=== PATIENT | male | born 1960 | race Caucasian/White ===

== ENCOUNTER 2024-12-06 19:00 | Emergency (ER) | payer OTHER, SELFPAY ==
--- OUTSIDE RECORDS SUMMARY | 2023-10-10 04:00 | XMS_ITS ---
Author Organization [facility] Address [address] [facility] [address] [place] [address] Care Team Providers Care Residential Case Manager Name Role Phone Migration, Provider Unavailable [phone] REASON FOR VISIT EMR-Tone Encounters Encounter Location Date Provider Diagnosis [facility] [address] [place] [address] 10/10/2023 Provider Migration Plan Of Treatment Medication Medication Name Sig Start Date Stop Date Notes traMADol HCl 50 MG 1 Oral Q6; Duration: 30 04/01/2017 04/30/2017 ,PRN Reason:for pain Lidocaine HCl 10 mg/mL (1 %) 20 Injection Titrated; Duration: 0 06/12/2015 06/12/2015 Nucynta 100 MG 1 Oral BID; Duration : 30 10/06/2015 11/04/2015 ,discontinuereaso n:Refilled Propofol 10 mg/mL 60 Intravenous Titrated; Duration: 0 06/12/2015 06/12/2015 Midazolam HCl 2 mg/2 mL (1 mg/mL) 2 Injection Now; Duration: 0 06/12/2015 06/12/2015 ceFAZolin Sodium 1 GM 1 Injection Titrat ed; Duration: 0 03/03/2017 03/03/2017 Nucynta 50 MG 1 Oral Q12H; Duratio n: 30 12/18/2016 01/16/2017 Sodium Chloride 0.9 % 250 Injection Titrated; Duration: 0 06/12/2015 06/12/2015 Methocarbamol 500 MG 1 Oral BID; Duratio n: 30 03/08/2016 04/02/2016 ,discontinuereaso n:Discontinued,WI N Reason:for spasms oxyCODONE HCl 10 MG Oral BID; Duration: 30 06/13/2015 04/03/2015 Progress Notes * Austen HARTMANDOB:[birth year] (64 yo M)Acc No.[id number]:10/10/2023 Patient: Austen PERRY :1960 A ge:63 Y S ex:Male Phone: Address:[address] [place] [address] [place], [address] * Refills Stop traMADol HCl Tablet, 50 MG, Oral, 120, 1, Q6, 30 Stop Nucynta Tablet, 100 MG, Oral, 60, 1, BID, 30 Stop Nucynta Tablet, 50 MG, Oral, 60, 1, Q12H, 30 Stop traMADol HCl Tablet, 50 MG, Oral, 60, 1, Q6, 15 Stop Nucynta Tablet, 50 MG, Oral, 30, 1, Q12H, 15 Stop traMADol HCl Tablet, 50 MG, Oral, 28, Q6, 7 Stop Nucynta Tablet, 50 MG, Oral, 60, 1, Q12H, 30 Stop Nucynta Tablet, 50 MG, Oral, 60, 1, BID, 30 Stop traMADol HCl Tablet, 50 MG, Oral, 120, 1, Q6, 30 Stop Nucynta Tablet, 50 MG, Oral, 60, 1, BID, 30 Stop Methocarbamol Tablet, 500 MG, Oral, 60, 1, BID, 30 Stop oxyCODONE HCl Tablet, 10 MG, Oral, 60, BID, 30 Stop traMADol HCl Tablet, 50 MG, Oral, 120, 1, Q6, 30 Stop traMADol HCl Tablet, 50 MG, Oral, 120, 1, Q6, 30 Stop traMADol HCl Tablet, 50 MG, Oral, 120, 1, Q6, 30 Stop traMADol HCl Tablet, 50 MG, Oral, 120, 1, Q6, 30 Stop traMADol HCl Tablet, 50 MG, Oral, 120, 1, Q6, 30 Stop Nucynta Tablet, 100 MG, Oral, 60, BID, 30 Stop Nucynta Tablet, 100 MG, Oral, 60, BID, 30 Stop Nucynta Tablet, 50 MG, Oral, 60, 1, Q12H, 30 Stop traMADol HCl Tablet, 50 MG, Oral, 120, 1, Q6, 30 Stop Nucynta Tablet, 50 MG, Oral, 60, 1, BID, 30 Stop Nucynta Tablet, 100 MG, Oral, 60, 1, BID, 30 Stop Methocarbamol Tablet, 500 MG, Oral, 60, 1, BID, 30 Stop traMADol HCl Tablet, 50 MG, Oral, 120, 1, Q6, 30 Stop traMADol HCl Tablet, 50 MG, Oral, 120, 1, Q6, 30 Stop traMADol HCl Tablet, 50 MG, Oral, 120, 1, Q6, 30 Stop traMADol HCl Tablet, 50 MG, Oral, 120, 1, Q6, 30 Stop Nucynta Tablet, 50 MG, Oral, 60, 1, Q12H, 30 Stop Nucynta Tablet, 50 MG, Oral, 60, 1, BID, 30 Stop Nucynta Tablet, 50 MG, Oral, 60, 1, BID, 30 Stop Nucynta Tablet, 50 MG, Oral, 60, 1, Q12H, 30 Stop Methocarbamol Tablet, 500 MG, Oral, 60, 1, BID, 30 Stop Methocarbamol Tablet, 500 MG, Oral, 60, 1, BID, 30 Stop Methocarbamol Tablet, 500 MG, Oral, 60, 1, BID, 30 Stop oxyCODONE HCl Tablet, 10 MG, Oral, 60, BID, 30 Stop traMADol HCl Tablet, 50 MG, Oral, 120, 1, Q6, 30 Stop traMADol HCl Tablet, 50 MG, Oral, 120, 1, Q6, 30 Stop traMADol HCl Tablet, 50 MG, Oral, 120, 1, Q6, 30 Stop traMADol HCl Tablet, 50 MG, Oral, 120, 1, Q6, 30 Stop Nucynta Tablet, 100 MG, Oral, 60, BID, 30 Stop Nucynta Tablet, 100 MG, Oral, 60, BID, 30 Stop Propofol Emulsion, 10 mg/mL, Intravenous, 60, Titrated, 0 Stop Sodium Chloride Solution, 0.9 %, Injection, 250, Titrated, 0 Stop Lidocaine HCl Solution, 10 mg/mL (1 %), Injection, 20, Titrated, 0 Stop ceFAZolin Sodium Solution Reconstituted, 1 GM, Injection, 1, Titrated, 0 Stop Midazolam HCl Solution, 2 mg/2 mL (1 mg/mL), Injection, 2, Now, 0 Subjective: * Chief Complaints: * E MR-Tone * Medical History: * Surgical History: * Hospitalization/Major Diagno stic Procedure: * Medications: Objective: * Vitals: * Physical Examination: Assessment: Plan: * Treatment: * Procedure Codes: * * Date:
--- OUTSIDE RECORDS SUMMARY | 2023-10-11 04:00 | XMS_ITS ---
Author Organization [facility] Address [address] [facility] [address] [place] [address] Care Team Providers Care Leaf Conditioner Name Role Phone Migration, Provider Unavailable [phone] Allergies Allergen (clinical drug ingredient) Drug/Non Drug Allergy documented on EMR Reaction Allergy Type Onset Date Status NO KNOW FOOD ALLERGI ES (uncoded) Unknown Allergy 10/09/2015 Active REASON FOR VISIT EMR-[facility] Medications Medication SIG (Take, Route, Frequency, Duration) Notes Start Date End Date Status OxyCONTIN 20 MG 1 Oral TID; Duration : 0 06/12/2015 Active Lisinopril 10 MG 1 Oral daily; Duration: 0 06/12/2015 Active Zetia oral; Duration: 0 *Pick strength -form from Medispan for eRX* 05/17/2015 Active Lisinopril oral; Duration: 0 *Pick strength -form from Medispan for eRX* 05/17/2015 Active Encounters Encounter Location Date Provider Diagnosis [facility] [address] [facility] [address] [place] [address] 10/11/2023 Provider Migration Plan Of Treatment No Information Progress Notes * Austen HARTMANDOB:[birth year] (64 yo M)Acc No.[id number]:10/11/2023 Patient: Austen PERRY David :1960 A ge:63 Y S ex:Male Phone: Address:[address] [place], [place], [address] Subjective: * Chief Complaints: * E MR-Tone * Medical History: * Surgical History: back surgery 01/2012 ankle surgery 1988 knee surgery [id number] shoulder surgery LEFT [id number] surgery NECK 09/2013 NECK SURGERY back surgery LUMBAR knee surgery RIGHT * Hospitalization/Major Diagno stic Procedure: * Family History: F ather: Cancer, D iabetes, H igh Blood Pressure. M other: Diabetes, H igh Blood Pressure. * Social History: M igrated Social History: M igrated Social History: Tobacco history:Never smoker,Education level:College Graduate,Number of children:0,Marital status:,Employment:Currently employed,Alcohol history:Never drinks alcohol. * Medications: T akingLisinopril oral , Notes to Pharmacist: *Pick strength-form from Medispan for eRX*Zetia oral , Notes to Pharmacist: *[facility]OxyCONTIN 20 MG Tablet ER 12 Hour Abuse-Deterrent 1 Oral TID Lisinopril 10 MG Tablet 1 Oral daily Taking Lisinopril oral , Notes to Pharmacist: *Pick strength-form from Medispan for eRX*Taking Zetia oral , Notes to Pharmacist: *[facility]*Taking OxyCONTIN 20 MG Tablet ER 12 Hour Abuse-Deterrent 1 Oral TID Taking Lisinopril 10 MG Tablet 1 Oral daily * Allergies: N O KNOW FOOD ALLERGIES: Allergy - Onset Date 10/09/2015 Objective: * Vitals: * Physical Examination: Assessment: Plan: * Treatment: * Procedure Codes: * * Date:
[2024-12-06 19:02] VITALS: BP 130/81; PULSE 72; RESP 16; TEMP 37.1; O2SAT 96
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
--- OUTSIDE RECORDS SUMMARY | 2024-12-06 19:02 | XMS_ITS | Clinical Summary ---
Author Organization [facility] Address [address] [place] [address] Care Team Providers Care Cna Gna Name Role Phone Unavailable Primary Care Provider Unavailabl e Allergies No known active allergies Medications atorvastatin (LIPITOR) 10 mg tablet Take 20 mg by mouth. Active carvedilol (COREG) 3.125 mg tablet Take 25 mg by mouth daily. Active ezetimibe (ZETIA) 10 mg tablet Take 10 mg by mouth daily. Active lisinopril (ZESTRIL) 10 mg tablet Take 10 mg by mouth daily. Active oxyCODONE-aceta minophen (PERCOCET) 5-325 mg per tablet Take 1 tablet by mouth every 4 (four) hours as needed for moderate pain. Active naproxen (NAPROSYN) 250 mg tablet Take 250 mg by mouth 2 (two) times a day with meals. LAST DOSE 09/18 Active Active Problems Problem Noted Date Diagnosed Date Lumbar disc disease 05/15/2017 S/P laminectomy 05/15/2017 Family History Medical History Relation Name Comments Diabetes Father Diabetes Mother Hyperlipidemia Mother Hypertension Mother Relation Name Status Comments Father Mother Social History Tobacco Use Types Packs/Day Years Used Date Smoking Tobacco: Never Smokeless Tobacco: Never Alcohol Use Standard Drinks/Week Comments Not Currently 0 (1 standard drink = 0.6 oz pur e alcohol) SOCIALLY Sex and Gender Information Value Date Recorded Sex Assigned at Male 10/26/2018 8:55 AM PDT Legal Sex Male 8:32 PM PDT Gender Identity Male 05/15/2017 9:59 PM PST Sexual Orientation Straight 05/15/2017 9: 59 PM PST Last Filed Vital Signs Vital Sign Reading Time Taken Comments Blood Pressure 103/72 10/26/2018 8:25 AM PDT Pulse 66 10/26/2018 8:25 AM PDT Temperature 36.8 C (98.2 F) 10/26/2018 8:25 AM PDT Respiratory Rate 12 10/26/2018 8:25 AM PDT Oxygen Saturation 97% 10/26/2018 8:25 AM PDT Inhaled Oxygen Concentration - - Weight 91.3 kg (201 lb 3.2 oz) 10/26/2018 7:06 A M PDT Height 180 cm (5' 10.87) 10/26/2018 7:06 AM PDT Body Mass Index 28.17 10/26/2018 7:06 AM PDT Plan of Treatment Health Maintenance Due Date Last Done Comments CT Colonography 1960 Cologuard (DNA) 1960 Colonoscopy 1960 Colorectal Cancer Screening 1962 FOBT (Stool Occult) 1962 Sigmoidoscopy 1962 Vaccine: DTaP,Tdap,and Td (1 - Tdap) 1981 Vaccine: Influenza (#1) 2024 12/29/2010 Medical Devices Implanted Type Area Grant Specialist Device Identifier Shelf Expiration Date Model / Serial / Lot Spacer Coroent Brigade [id number] 8deg - [id number] Implanted:Qty: 1 on 05[facility]15/[facility] [employer] 05/15/2022 [id number] / / Screw Bone Coroent Brigade 4.5mm X 25mm - [id number] Implanted:Qty: 2 on 05/15/2017 [facility] [employer] 05/15/2022 [id number] / / Screw Bone Coroent Brigade 4.5mm X 20mm - [id number] Implanted:Qty: 1 on 05/15/2017 by [facility] [employer] 05/15/2022 [id number] / / Screw Facet Fixation F/T 20mm - [id number] Implanted:Qty: 2 on 05/15/2017 by Rafa Altman MD at [facility] [employer] 09/12/2022 [id number] / / Matrix Amniofix Particulate 100mg Inj 1.25ml - [id number] Implanted:Qty: 1 on 05/15/2017 by Rafa Altman MD at [facility] [employer] 01/21/2022 [id number] / / Bone Graft Optifuse Om Strip 10cc - [id number] Implanted:Qty: 1 on 05/15/2017 by Rafa Altman MD at [facility] [employer] 11/21/2019 [id number] / / Insurance [facility])
--- OUTSIDE RECORDS SUMMARY | 2024-12-06 19:02 | XMS_ITS | Patient Health Record ---
Author Organization [facility] Address [address] [facility] [address] [place], [place] [address] Support Name Relationship Address Phone Austen Hartman Guarantor Unknown Unavailable Allergies No Known Allergies Reason For Referral No Information Medications Medication SIG (Take, Route, Frequency, Duration) Notes Start Date End Date Status OxyCONTIN 20 MG 1 Oral TID; Duration : 0 06/12/2015 Active Lisinopril 10 MG 1 Oral daily; Duration: 0 06/12/2015 Active Zetia oral; Duration: 0 *Pick strength -form from Medispan for eRX* 05/17/2015 Active Lisinopril oral; Duration: 0 *Pick strength -form from Medispan for eRX* 05/17/2015 Active Problems Problem Type SNOMED Code ICD Code Onset Dates Problem Status W/U Status Risk Notes Problem Acquired spondylolisthesis (272154716) Spondylolysis, lumbar region (M43.06) 018 Active confirmed Problem Lumbosacral spondylosis without myelopathy (10822090) Other spondylosis with radiculopathy, lumbosacral region (M47.27) 017 Active confirmed Problem Lumbosacral spondylosis without myelopathy (44436228) Spondylosis without myelopathy or radiculopathy, lumbar region (M47.816) 016 Active confirmed Problem Lumbosacral spondylosis without myelopathy (disorder) (17399182) Spondylosis without myelopathy or radiculopathy, lumbosacral region (M47.817) 017 Active confirmed Problem Lumbosacral spondylosis without myelopathy (02022245) Other spondylosis, lumbosacral region (M47.897) 017 Active confirmed Problem Spinal stenosis of lumbar region (49113616) Spinal stenosis, lumbosacral region (M48.07) 017 Active confirmed Problem Degeneration of lumbar intervertebral disc (97879537) Other intervertebral disc degeneration, lumbar region (M51.36) 018 Active confirmed Problem Lumbar radiculopathy (011204834) Radiculopathy, lumbar region (M54.16) 018 Active confirmed Problem Lumbosacral radiculopathy (3851026) Radiculopathy, lumbosacral region (M54.17) Active confirmed Problem Cervicalgia (09610817) Cervicalgia (M54.2) Active confirmed Problem Low back pain (180482162) Low back pain (M54.5) Active confirmed Problem Myalgia (34703706) Myalgia (M79.1) Active confirmed Problem Post-laminectomy syndrome (91356895) Postlaminectomy syndrome, not elsewhere classified (M96.1) Active confirmed Problem Therapeutic drug monitoring, quantitative (regime/therapy) (43587561) Encounter for therapeutic drug level monitoring (Z51.81) 017 Active confirmed Problem Long-term current use of drug therapy (607082783) Other retirement (current) drug therapy (Z79.899) 017 Active confirmed Plan Of Treatment No Information Insurance Providers Payer Name Payer Address Payer Phone Subscriber Number Group Number Insured Name Patient Relationship to Insured Coverage Start Date [facility]age End Date [facility] [address] [place], [place] [id number] Ibis Hartman Spouse - patient is the spouse of the insured Medical (General) History Surgical History Surgery Date(Month/Year) back surgery 01/2012 ankle surgery 1988 knee surgery [id number] shoulder surgery LEFT [id number] surgery NECK 09/2013 NECK SURGERY back surgery LUMBAR knee surgery RIGHT
[2024-12-06 20:01] VITALS: BP 140/80; PULSE 70; RESP 14; TEMP 37.1; O2SAT 94
--- NOTE | 2024-12-06 20:17 | ED_ITS ---
HPI - General Adult General Chief complaint: Recheck/Abnormal Lab/Rx Stated complaint: post op wound to right arm Time Seen by Provider: 12/06/24 20:02 Source: patient Mode of arrival: ambulatory Limitations: no limitations History of Present Illness HPI narrative: This is a 64-year-old male with no significant past medical history presents the ED for postop infection. Patient states that about a week ago, he had a lipoma removed from his right arm and his right back in [place] where he lives. He is currently visiting family here in town. He states that for the past few days, he has noticed some yellowish drainage and crusting around the incisions so he called his provider today who advised that he go to the ED for further evaluation. Patient did have a fever today of 100.6 and took some Tylenol with relief of that. Related Data Allergies Allergy/AdvReac Type Severity Reaction Status Date / Time No Known Allergies Allergy Unverified 03/18/13 18:58 Review of Systems Review of Systems: Gen.: Denies fevers or chills Eyes: Denies eye pain or visual change ENT: Denies congestion Respiratory: Denies shortness of breath or cough CV: Denies chest pain or palpitations GI: Denies abdominal pain nausea, emesis or diarrhea denies burning, urgency, frequency or hematuria Musculoskeletal: Denies back pain or muscle pain Neuro: Denies numbness, tingling, weakness or focal weakness Skin: As per HPI Except as documented, all other systems reviewed and negative Exam Narrative: APPEARANCE: No acute distress, nontoxic, resting in bed HEENT: Normocephalic, atraumatic, OMM RESPIRATORY: No respiratory distress CARDIOVASCULAR: Appears well perfused ABDOMINAL: Nondistended MUSCULOSKELETAl: Moves all extremities. No obvious deformities NEURO: Awake and alert. SKIN:: 3 cm incision to the right distal upper arm with some blistering and a small amount of yellowish drainage. Incision is intact. Similar appearance to 3 cm incision to the right lower back. PSYCHIATRIC: Normal affect/mood, Course Vital Signs Vital signs: Vital Signs Temperature 98.7 F 12/06/24 19:02 Pulse Rate 72 12/06/24 19:02 Respiratory Rate 16 12/06/24 19:02 Blood Pressure 130/81 12/06/24 19:02 Pulse Oximetry 96 12/06/24 19:02 Oxygen Delivery Room Air 12/06/24 19:02 Temperature 98.7 F 12/06/24 20:01 Pulse Rate 70 12/06/24 20:01 Respiratory Rate 14 12/06/24 20:01 Blood Pressure 140/80 12/06/24 20:01 Pulse Oximetry 94 12/06/24 20:01 Oxygen Delivery Room Air 12/06/24 20:01 Medical Decision Making MDM Narrative Medical decision making narrative: 64-year-old male who presents to the ED for concerns for incisional infection. On initial evaluation patient was acute distress afebrile, hemodynamically stable. He did have infectious appearing incisions to his right arm and right back. Patient is otherwise healthy appearing. He will be given doxycycline for this. He will follow up with his performing provider in [place] later this week/next week when he gets home. He was advised to return the ED for any new or worsening symptoms. Patient was agreeable to this plan. Given strict return precautions. Differential Diagnosis Differential Diagnosis: post op infection, allergic reaction to sutures, cellulitis, abscess Vital Signs Vital Signs: Vital Signs Temperature 98.7 F 12/06/24 19:02 Pulse Rate 72 12/06/24 19:02 Respiratory Rate 16 12/06/24 19:02 Blood Pressure 130/81 12/06/24 19:02 Pulse Oximetry 96 12/06/24 19:02 Oxygen Delivery Room Air 12/06/24 19:02 Temperature 98.7 F 12/06/24 20:01 Pulse Rate 70 12/06/24 20:01 Respiratory Rate 14 12/06/24 20:01 Blood Pressure 140/80 12/06/24 20:01 Pulse Oximetry 94 12/06/24 20:01 Oxygen Delivery Room Air 12/06/24 20:01 Discharge Plan Discharge Clinical Impression: Infected incision Patient Disposition: Home Condition: Stable Instructions: Antibiotic Form, Doxycycline (By mouth), Cellulitis (ED) Additional Instructions: Take doxycycline as prescribed. Follow up with the performing provider in the next few days for re-evaluation. Return to ED for any new or worsening symptoms. For pain, discomfort or temperature greater than or equal to 100.8 ?F please alternate the following 2 medications as needed. First medication- acetaminophen/Tylenol- 1000mg every 6-8 hours as needed for above indications. Second medication- ibuprofen/Motrin-600mg every 6-8 hours as needed for above indication. Patient Language: Malagasy Prescriptions: New doxycycline hyclate 100 mg capsule 100 mg PO BID 7 Days Qty: 14 0RF Follow-up/Referrals: PHYSICIAN NOT ON STAFF,NONSTAFF [Primary Care Provider]
[2024-12-06] MEDS: DOXYCYCLINE HYCLATE 100 MG TABLET PO (20:34)
--- OUTSIDE RECORDS SUMMARY | 2024-12-06 20:50 | XMS_ITS | Clinical Summary ---
Author Organization [facility] Address [facility], [address] [place] [address] Care Team Providers Care Jewelry Setter Name Role Phone Unavailable Primary Care Provider Unavailabl e Social History Tobacco Use Types Packs/Day Years Used Date Smoking Tobacco: Never Assessed Sex and Gender Information Value Date Recorded Sex Assigned at Not on file Legal Sex Male 3:23 PM PDT Gender Identity Not on file Sexual Orientation Not on file Last Filed Vital Signs Vital Sign Reading Time Taken Comments Blood Pressure 130/81 09/11/2017 12:09 AM PDT Pulse 65 09/11/2017 12:09 AM PDT Temperature 36.7 C (98.1 F) 09/11/2017 12:09 AM PDT Respiratory Rate 18 09/11/2017 12:09 AM PDT Oxygen Saturation 96% 09/11/2017 12:09 AM PDT Inhaled Oxygen Concentration - - Weight 88.5 kg (195 lb) 09/10/2017 8:01 PM PDT Height 180.3 cm (5' 10.98) 09/10/2017 8:01 PM P DT Body Mass Index 27.21 09/10/2017 8:01 PM PDT Plan of Treatment Not on file
--- OUTSIDE RECORDS SUMMARY | 2024-12-06 20:50 | XMS_ITS | Clinical Summary ---
Author Organization [facility] Address [address] [place] [address] Phone Care Team Providers Care Promotions Executive Producer Name Role Phone Pcp, No Primary Care Provider Unavailabl e Source Comments The [employer] EMR is fully implemented at [facility] across theentire continuum of care.[facility] Allergies No known active allergies Medications * Always verify current medications with the patient. lisinopril (ZESTRIL) 40 mg tablet Take 20 mg by mouth daily. (one-half tablet=20mg) Active carvedilol (COREG) 25 mg tablet Take 25 mg by mouth 2 times daily. Active gabapentin (NEURONTIN) 100 mg capsule Take 100-200 mg by mouth nightly. And in the morning as needed Active ezetimibe (Zetia) 10 mg tablet Take 10 mg by mouth nightly. Active alfuzosin (UROXATRAL) 10 mg SR tablet 24 hr Take 10 mg by mouth nightly. Active cholecalciferol (VITAMIN D3) 1,000 unit tablet Take 1,000 Units by mouth daily. Active cetirizine (ZyrTEC) 10 mg tablet Take 10 mg by mouth daily as needed for Allergies. Active hydroxypropyl methylcellulose (Isopto Tears) 0.5 % ophthalmic drops Instill 1 drop in both eyes 3 times daily as needed (dry eyes). Active CALCIUM PO Take 2 tablets by mouth 2 times daily. Active azelastine (ASTELIN) 137 mcg (0.1 %) nasal spray Instill 1-2 sprays in both nostrils 2 times daily as needed (nasal discomfort). Active fluticasone propionate (Flonase Allergy Relief) 50 mcg/actuation nasal spray Instill 2 sprays in both nostrils daily as needed for Allergies. Active apixaban (ELIQUIS) 5 mg tablet Take 1 tablet by mouth 2 times daily. 60 tablet 2 Active aspirin (ECOTRIN LOW STRENGTH) [address] tablet Take 1 tablet by mouth daily. 90 tablet 3 2 Active dilTIAZem (Cardizem CD) 240 mg SR capsule 24 hr Take 1 capsule by mouth daily. 30 capsule 2 Active Immunizations Immunization Administration Dates Next Due COVID-19, VVnr, Caryn, Pre servative Free (until 09/09/2022) 04/22/2021 Influenza Vaccine 04/15/2021 Social History Tobacco Use Types Packs/Day Years Used Date Smoking Tobacco: Never Smokeless Tobacco: Never Alcohol Use Standard Drinks/Week Comments Yes 0 (1 standard drink = 0.6 oz pur e alcohol) once a month Alcohol Use Answer Date Recorded Q1: How often do you have a drink containing alc ohol? Monthly or less 05/23/2021 Q2: How many drinks containi ng alcohol do you have on a typical day when you are drinking? 1 or 2 05/23/2021 Q3: How often do you have si x or more drinks on one occasion? Never 05/23/2021 Depression Answer Date Recorded PHQ-9 Score 0 05/23/2021 Screening Completed PHQ-2 05/23/2021 Transportation Needs Answer Date Record ed In the past 12 months, has l ack of reliable transportation kept you from medical appointments, meetings, work or from getting things needed for daily living? No 05/24/2021 Housing Stability Answer Date Recorded What is your housing situation today? I have jake sing 05/24/2021 Are you worried about losing your housing? No 05/24/2021 Independent Living Answer Date Recorded Because of a physical, menta l, or emotional condition, do you have difficulty doing errands alone such as visiting a doctor's office or shopping? No 05/23/2021 Sexually Active Control Partners Comments Yes Female Sex and Gender Information Value Date Recorded Sex Assigned at Not on file Legal Sex Male 3:35 PM PST Gender Identity Not on file Sexual Orientation Not on file Last Filed Vital Signs Vital Sign Reading Time Taken Comments Blood Pressure 92/61 05/24/2021 4:23 PM PST Pulse 56 05/24/2021 4:23 PM PST Temperature 36.3 C (97.3 F) 05/24/2021 4:15 PM PST Respiratory Rate 16 05/24/2021 6:16 PM PST Oxygen Saturation 95% 05/24/2021 4:23 PM PST Inhaled Oxygen Concentration - - Weight 86.1 kg (189 lb 14.4 oz) 05/24/2021 6:05 AM PST Height 180.3 cm (5' 11) 05/23/2021 11: 16 PM PST Body Mass Index 26.49 05/23/2021 11:16 PM PST Plan of Treatment Health Maintenance Due Date Last Done Comments CRC Screening 1962 CT Colonography Test 1962 Cologuard 1962 Colonoscopy 1962 FIT Test 1962 Flexible Sigmoidoscopy 1962 Hep C Screening 1962 DTaP,Tdap,and Td Vaccines (1 - Tdap) 1981 Pneumococcal 50+ (1 of 1 - PCV) 2012 Zoster Vaccine (1 of 2) 2012 Depression Assessment (PHQ 2 -9 / PHQ A / EPDS) 02/22/2022 05/23/2021 COVID-19 Vaccination (SARS-CoV-2) (2 - 2024- season) 2024 04/22/2021 Influenza Vaccine (#1) 2024 2, 03/22/2020 RSV Obstetrics & Adults (1 - 1-dose 75+ series) 2037 Hepatitis B Vaccine (Adult) Aged Out No longer eligible based on patient's age to complete this topic Insurance [employer]IC [employer]ERCIAL Member Subscriber Plan / Payer (Ef fective 2021-Present) Name:Austen Hartman Relation to Subscriber:Self Name:HartmanAusten Payer ID:[id number] Group ID:Not on file Type:[employer] Address: [address] [place] [address] [employer]ER[employer] Member Subscriber Plan / Payer (Ef fective 2021-Present) Name:Austen Hartman Relation to Subscriber:Self Name:Austen Hartman Payer ID:[id number] Group ID:Not on file Type:[employer] Address: [id number] [place] [address] Advance Directives For more information, please contact: [phone] * Full Code Per Policy (Latest Code Status on File) Date Activated Date Inactivated Comments 05/23/2021 11:08 PM 05/24/2021 9:48 PM Healthcare Agents on File Name Relationship Healthcare Agent Relationshi p Communication Caroyln Devan Mother 4. Emergency Con tact Only - Only Share Emergent Health Information Care Teams Promotions Executive Producer Relationship Specialty Start Date End Date Pcp, No PCP - General 05/23/21
--- OUTSIDE RECORDS SUMMARY | 2024-12-06 20:50 | XMS_ITS | Clinical Summary ---
Author Organization [facility] Address [address] [place] [address] Care Team Providers Care Internal Combustion Engine Assembler Name Role Phone No, Physician Primary Care Provider Unavailabl e Allergies No known active allergies Social History Tobacco Use Types Packs/Day Years Used Date Smoking Tobacco: Never Assessed Sex and Gender Information Value Date Recorded Sex Assigned at Not on file Legal Sex Male 7:28 PM PDT Gender Identity Not on file [...] 8:01 PM PDT Height 180.3 cm (5' 11) 09/10/2017 8:01 PM PDT Body Mass Index 27.2 09/10/2017 8:01 PM PDT Plan of Treatment Health Maintenance Due Date Last Done Comments CT Colonography 1980 ColoGuard 1980 Colonoscopy 1980 Colorectal Combination Topic 1980 FIT 1980 Sigmoidoscopy 1980 Vaccine: Dtap/Tdap/Td (1 - Tdap) 1981 Vaccine: Pneumococcal 50+ (1 of 1 - PCV) 2012 Vaccine: Zoster (1 of 2) 2012 COVID-19 Vaccine ( - 2023-2 5 season) 2024 Vaccine: Influenza (#1) 2024 Vaccine: RSV Adult (1 - 1-do se 75+ series) 2037 Vaccine: Hepatitis B Adult Aged Out N o longer eligible based on patient's age to complete this topic Vaccine: Hib Aged Out No longer eligi ble based on patient's age to complete this topic Vaccine: Meningococcal B Aged Out No longer eligible based on patient's age to complete this topic Insurance #[address] [place] [address] [facility] Care Teams Internal Combustion Engine Assembler Relationship Specialty Start Date End Date No, Physician PCP - General 09/10/17
--- OUTSIDE RECORDS SUMMARY | 2024-12-06 20:50 | XMS_ITS | Clinical Summary ---
Author Organization [facility] Address [id number] [place] [id number] Care Team Providers Care Copy Center Specialist Name Role Phone System, [facility] Primary Care Pr ovider Allergies No known active allergies Medications carvediLOL (COREG) 25 mg Tablet Take 25 mg by mouth 2 times a day. Active dilTIAZem CD, 24 hr, (CARDIZEM CD, CARTIA XT) 240 mg Capsule, Sust. Release 24HR Take 240 mg by mouth once a day. Active apixaban (ELIQUIS) 5 mg Tablet Take 5 mg by mouth 2 times a day. Active lisinopril (ZESTRIL, PRINIVIL) 20 mg tablet Take 20 mg by mouth once a day. Active ezetimibe (ZETIA) 10 mg tablet Take 10 mg by mouth once a day. Active Social History Tobacco Use Types Packs/Day Years Used Date Smoking Tobacco: Never Smokeless Tobacco: Never Alcohol Use Standard Drinks/Week Comments Yes 0 (1 standard drink = 0.6 oz pur e alcohol) occ Sex and Gender Information Value Date Recorded Sex Assigned at Not on file Legal Sex Male 2:04 PM PDT Gender Identity Not on file Sexual Orientation Not on file Last Filed Vital Signs Vital Sign Reading Time Taken Comments Blood Pressure 110/56 06/26/2021 9:15 AM PDT Pulse 60 06/26/2021 9:15 AM PDT Temperature 36.3 C (97.3 F) 06/26/2021 7:00 AM PDT Respiratory Rate 18 06/26/2021 9:15 AM PDT Oxygen Saturation 97% 06/26/2021 9:15 AM PDT Inhaled Oxygen Concentration - - Weight 86.8 kg (191 lb 5.8 oz) 06/26/2021 7:44 A M PDT Height 176 cm (5' 9.29) 06/26/2021 7:00 AM PDT Body Mass Index 28.02 06/26/2021 7:00 AM PDT Plan of Treatment Health Maintenance Due Date Last Done Comments Colonoscopy 1962 Colorectal Cancer Screening 1962 FIT 1962 Fecal Mt-sDNA/Cologuard 1962 Hepatitis C Screening 1980 Pneumococcal Vaccines (50+ y ears) (1 of 1 - PCV) 2012 Zoster Vaccines (1 of 2) 2012 Depression Screening (Billin g for this is optional) 03/23/2024 Social Drivers of Health (SDoH) 03/23/2024 COVID-19 Vaccine (2 - 2024-2 6 season) 2024 04/22/2021 Influenza Vaccine (#1) 2024 , 02/28/2021, 01/22/2020, Additional history exists DTaP, Tdap, and Td Vaccines (3 - Td or Tdap) 11/01/2028 11/01/2018, 11/02/2007, 10/31/1989 RSV Vaccines (1 - 1-dose 75+ series) 2037 Insurance [facility] Care Teams Copy Center Specialist Relationship Specialty Start Date End Date System, [facility] [address] [place] [address] PCP - General 06/21/21
--- OUTSIDE RECORDS SUMMARY | 2024-12-06 20:50 | XMS_ITS | Encounter Summary ---
Author Organization [facility] Address [address] [place] [address], [address] [place] [address] Care Team Providers Care Health Researcher Name Role Phone Unavailable Primary Care Provider Unavailabl e Encounter Details Date Type Department Care Team (Late st Contact Info) Description 09/10/2017 [facility] Conversion [facility] CONVERSION DEPARTMENT Social History Tobacco Use Types Packs/Day Years Used Date Smoking Tobacco: Never Assessed Sex and Gender Information Value Date Recorded Sex Assigned at Not on file Legal Sex Male 3:23 PM PDT Gender Identity Not on file Sexual Orientation Not on file documented as of this encounter Plan of Treatment Not on file documented as of this encounter Visit Diagnoses Not on filedocumented in this encounter
--- OUTSIDE RECORDS SUMMARY | 2024-12-06 20:50 | XMS_ITS | Clinical Summary ---
Author Organization [facility] Address [address] [place] [address] Care Team Providers Care Front Office Representative Name Role Phone Unavailable Primary Care Provider [...] 2024 12/29/2010 Medical Devices Implanted Type Area Free Lance Model Device Identifier Shelf Expiration Date Model / Serial / Lot Spacer Coroent Brigade [id number] 8deg - [id number] Implanted:Qty: 1 on 05/15/2017 [facility] [employer] 05/15/2022 [id number] / / Screw Bone Coroent Brigade 4.5mm X 25mm - [id number] Implanted:Qty: 2 on 05/15/2017 by [facility] [employer] 05/15/2022 [id number] / / Screw Bone Coroent Brigade 4.5mm X 20mm - [id number] Implanted:Qty: 1 on 05/15/2017 by [facility] [employer] 05/15/2022 [id number] / / Screw Facet Fixation F/T 20mm - [id number] Implanted:Qty: 2 on 05/15/2017 by Rafa Altman MD at [facility] [employer] 09/12/2022 [id number] / / Matrix Amniofix Particulate 100mg Inj 1.25ml - [id number] Implanted:Qty: 1 on 05/15/2017 by Rafa [facility]man MD at [facility] [employer] 01/21/2022 [id number] / / Bone Graft Optifuse Om Strip 10cc - [id number] Implanted:Qty: 1 on 05/15/2017 by Rafa Altman MD at [facility] [employer] 11/21/2019 [id number] / / Insurance [facility])
--- OUTSIDE RECORDS SUMMARY | 2024-12-06 20:50 | XMS_ITS | Clinical Summary ---
Author Organization [facility] Address [address] [address] Care Team Providers Care Social Worker Delinquency Prevention Name Role Phone Unavailable Primary Care Provider Unavailabl e Source Comments [facility],non-owned Affiliates and Associated Physician Practices is amultiple site organization consisting of ambulatory clinics and hospital sitesin [place], [place], [place] and [place]. This disclosure is being madepursuant to the Care Everywhere program and may not contain all information available regarding this patient. Last updated 17.[facility] Active Problems Problem Noted Date Diagnosed Date [...] on file Legal Sex Male 6:40 PM STEEL POST INSTALLER SUPERVISOR Gender Identity Not on file Sexual Orientation Not on file Last Filed Vital Signs Vital Sign Reading Time Taken Comments Blood Pressure 135/95 02/24/2013 8:04 PM STEEL POST INSTALLER SUPERVISOR Pulse 75 02/24/2013 8:04 PM STEEL POST INSTALLER SUPERVISOR Temperature 37 C (98.6 F) 02/24/2013 8:04 PM STEEL POST INSTALLER SUPERVISOR Respiratory Rate 18 02/24/2013 8:04 PM STEEL POST INSTALLER SUPERVISOR Oxygen Saturation 100% 02/24/2013 8:04 PM STEEL POST INSTALLER SUPERVISOR Inhaled Oxygen Concentration - - Weight 93.4 kg (206 lb) 02/24/2013 8:04 PM STEEL POST INSTALLER SUPERVISOR Height 180.3 cm (5' 11) 02/24/2013 8:04 PM STEEL POST INSTALLER SUPERVISOR Body Mass Index 28.73 02/24/2013 8:04 PM STEEL POST INSTALLER SUPERVISOR Plan of Treatment Health Maintenance Due Date [...]
--- OUTSIDE RECORDS SUMMARY | 2024-12-06 20:50 | XMS_ITS | Clinical Summary ---
Author Organization [facility] Address [address] [place] [address] Care Team Providers Care Factory Manager Name Role Phone Unavailable Primary Care Provider Unavailabl e Source Comments IMPORTANT WARNING: This document is intended for the use of the person orentity to which it is addressed and may contain information that is privilegedand confidential, the disclosure of which is governed by applicable law. If youare not the intended recipient, or the employee or agent responsible to deliverit to the intended recipient, you are notified that any dissemination,distribution or copying of this information is STRICTLY PROHIBITED. If you havereceived this communication in error, please immediately notify us by telephoneat [phone] and return this original message or destroy it.[facility] Social History Tobacco Use Types Packs/Day Years Used Date Smoking Tobacco: Never Assessed Sex and Gender Information Value Date Recorded Sex Assigned at Not on file Legal Sex Male 8:24 PM PST Gender Identity Not on file Sexual Orientation Not on file Plan of Treatment Not on file Additional Source Comments Request medical records from [facility] directly by faxing your request to . Please call for additional information and assistance.[facility]
--- OUTSIDE RECORDS SUMMARY | 2024-12-06 20:50 | XMS_ITS | Referral Summary ---
Author Organization [facility] Address [address] [place] [address] Care Team Providers Care Plush Cutter Name Role Phone No, Physician Primary Care [...] PDT Plan of Treatment Not on file Insurance [facility] Care Teams Plush Cutter Relationship Specialty Start Date End Date No, Physician PCP - General 09/10/17
--- OUTSIDE RECORDS SUMMARY | 2024-12-06 20:50 | XMS_ITS | Encounter Summary ---
Author Organization [facility] Address [address] [place] [address] Care Team Providers Care Director Imaging Name Role Phone Unavailable Primary Care Provider Unavailabl e Reason for Referral * Diagnostic Imaging (Routine) - Closed Specialty Diagnoses / Procedures Referred By Gonzales stern Referred To Contact Radiology Diagnoses Postlaminectomy syndrome, cervical region Procedures XR Chest 2 views Rafa Altman MD Referral ID Status Reason Start Date Expiration Date Visits Re quested Visits Authorized [id number] Closed 05/14/2017 08/12/2017 3 3 Encounter Details Date Type Department Care Team (Latest Contact Info) Description 05/14/2017 Transcribe Orders [facility] PATIENT ACCESS [address] [place] [address] Rafa Altman MD Postlaminectomy syndrome, cervical region (Primary Dx) Social History Tobacco Use Types Packs/Day Years [...] Orientation Straight 05/15/2017 9: 59 PM PST documented as of this encounter Plan of Treatment Scheduled Orders Name Type Priority Associated Diagnoses Orde r Schedule Basic metabolic panel Lab Routine Postlaminectomy syndrome, cervical region 1 Occurrences starting 05/14/2017 until 05/14/2018 ECG 12-Lead ECG Routine Postlaminectomy syndrome, cervical region 1 Occurrences starting 05/14/2017 until 05/14/2018 documented as of this encounter Results * XR Chest 2 views (05/14/2017 2:20 PM PST) Anatomical Region Laterality Modality Body N/A Digital Radiogra phy 05/14/2017 2:18 PM PST Impressions 05/14/2017 2:44 PM PST IMPRESSION: No acute pulmonary process. Narrative 05/14/2017 2:44 PM PST CLINICAL INDICATION: PRE-OP MAJOR SURGERY TECHNIQUE: PA and lateral chest dated May 14, 2017 COMPARISON: None FINDINGS: No focal consolidation. No pulmonary edema. The cardiac and mediastinal silhouettes are normal in size and contour. No pneumothorax or pleural effusion. Anterior spinal hardware is partially visualized in the cervical spine. Procedure Note Sb Tobar MD - 05/14/2017 CLINICAL INDICATION: PRE-OP MAJOR SURGERY TECHNIQUE: PA and lateral chest dated May 14, 2017 COMPARISON: None FINDINGS: No focal consolidation. No pulmonary edema. The cardiac andmediastinal silhouettes are normal in size and contour. No pneumothorax or pleural effusion. Anteriorspinal hardware is partially visualized in the cervical spine. IMPRESSION: No acute pulmonary process. us Rafa Altman MD IMG XR PROCEDURES Final Resul t * Type and screen (05/14/2017 2:05 PM PST) Blood specimen (specimen) Peripheral blood / Unknown 05/14/2017 2:05 PM PST 05/14/2017 2:11 PM PST us Rafa Altman MD LAB BLOOD BANK TEST ORDERABLE S Edited Result - Final [facility] [address] [place] [address], [place] * Activated Partial Thromboplastin Time (05/14/2017 2:05 PM PST) Activated Partial Thromboplastin 28 22 - 33 SEC. [facility] Comment:Based on the tommie silva's aPTT /Heparin anti Xa correlation study, aPTT levels of 52 - 78 seconds correlate with Heparin levels of 0.3 - 0.7 anti Xa units. Blood specimen (specimen) Peripheral blood / Unknown 05/14/2017 2:05 PM PST 05/14/2017 2:11 PM PST Rafa Altman MD LAB BLOOD ORDERABLES Final Re sult [facility] [address] [place] [address], [place] * Protime-INR (05/14/2017 2:05 PM PST) Prothrombin Time 11.9 9.3 - 12.4 SEC. [facility] International Normalization Ratio 1.1 0.8 - 1.2 [facility] Comment: Recommended therapeutic range for oral anticoagulant therapy (INR 2.0 - 3.0) INDICATION: Prophylaxis of venous thrombosis (High-risk surgery) Treatment of venous thrombosis Treatment of pulmonary embolism Prevention of Systemic embolism Acute myocardial infarction (To prevent systemic embolism) Valvular heart disease Atrial f illation 1. It is strongly recommended that all patients with mechanical prosthetic heart valves receive oral anticoagulant (Grade C1 recommendation) A goal INR of 2.5 (range 2.0 - 3.0) is recommended for patients with a bileaflet mechanical valve in the aortic position, provided the left atrium is of normal size, the patient is in sinus rhythm and the ejection fraction is normal (Grade A2 recommendation) 2. A goal INR of 3.0 (range 2.5 - 3.5) is recommended for all other patients. If oral anticoagulant therapy is elected to prevent recurrent myocardial infarction, an INR of 2.5 - 3.5 is recommended, consistent with Food and Drug Administration recommendations. Chest: 114:25 January 1998 Supplement Blood specimen (specimen) Peripheral blood / Unknown 05/14/2017 2:05 PM PST 05/14/2017 2:11 PM PST us Rafa Altman MD LAB BLOOD ORDERABLES Final Re sult [facility] [address] [place] [address], [place] * (ABNORMAL) Urinalysis with microscopic (05/14/2017 2:05 PM PST) Pathologist [facility] Urine Color YELLOW YELLOW [facility] Urine Appearance CLEAR CLEAR [facility] Urine Blood NEGATIVE NEGATIVE [facility] Urine Glucose NEGATIVE NEGATIVE [facility] Urine Bilirubin NEGATIVE NEGATIVE [facility] Urine Ketones NEGATIVE NEGATIVE [facility] Specific [place] 1.020 1.010 - 1.020 [facility] Urine Ph 5.5 5.0 - 8.0 [facility] Urine Protein NEGATIVE NEGATIVE [facility] Urobilinogen, Urine 1.0(A) Normal [facility] Urine Nitrite NEGATIVE NEGATIVE [facility] Urine Leukocyte Esterase NEGATIVE NEGATIVE [facility] Urine WBC NONE SEEN 0 - 8 [facility] Urine RBC 0-3 0 - 3 [facility] Urine Squamous Epithelial Cells NONE SEEN NONE SEEN [facility] Urine Bacteria NONE SEEN NONE SEEN [facility] Urine Hyaline Cast NONE SEEN NONE [facility] Urine specimen (specimen) Urine specimen obtained by clean catch procedure / Unknown 05/14/2017 2:05 PM PST 05/14/2017 2:11 PM PST Rafa Altman MD LAB URINE ORDERABLES Final Re sult [facility] [address] [place] [address], * (ABNORMAL) CBC with auto differential (05/14/2017 2:05 PM PST) [facility] Blood Cell 6.50 3.40 - 10.30 K/MM3 [facility] Red Blood Cell 6.03(H) 4.08 - 5.70 M/MM3 [facility] Hemoglobin 17.8(H) 13.1 - 16.8 G/DL [facility] Hematocrit 51.6(H) 38.2 - 48.4 % [facility] Mean Cell Volume 85.5 80.1 - 98.5 FL [facility] Mean Cell Hemoglobin 29.5 27.1 - 34.2 pg [facility] Mean Cell Hemoglobin Concentration 34.5 33.0 - 35.6 % [facility] Platelet 212 130 - 351 K/MM3 [facility] Mean Platelet Volume 7.7 7.5 - 11.2 FL [facility] Red Cell Distribution Width 13.9 11.8 - 15.1 % [facility] Neutrophil % 59.5 40.6 - 75.3 % [facility] Lymphocytes % 28.2 16.1 - 45.7 % [facility] Monocyte % 7.1 3.7 - 12.2 % [facility] Eosinophils % 4.8 0.0 - 6.3 % [facility] Basophils % 0.4 0.0 - 1.3 % [facility] Absolute Neutrophils 3.9 K/MM3 [facility] Absolute Lymphocyte 1.8 K/MM3 [facility] Absolute Monocytes 0.5 K/MM3 [facility] Absolute Eosinophils 0.3 K/MM3 [facility] Absolute Basophils 0.0 K/MM3 [facility] Blood specimen (specimen) Peripheral blood / Unknown 05/14/2017 2:05 PM PST 05/14/2017 2:11 PM PST us Rafa Altman MD LAB BLOOD ORDERABLES Final Re sult [facility] [address] [place] [address], [place] documented in this encounter Visit Diagnoses Diagnosis Postlaminectomy syndrome, cervical region- Primary Postlaminectomy syndrome, cervical region documented in this encounter
[2024-12-06 21:34] VITALS: BP 138/78; PULSE 78; RESP 18; O2SAT 96
== END 2024-12-06 21:36 | disposition home or self-care (01) ==
LOC: ANHED 20:48
PROVIDERS: Emergency Provider Student in an Organized Health Care Education/Training Program
DX: T81.41XA Infection following a procedure, superficial incisional surgical site, initial encounter (principal); Y83.8 Other surgical procedures as the cause of abnormal reaction of the patient, or of later complication, without mention of misadventure at the time of the procedure
CPT/HCPCS: 99283; A9270